=== PATIENT | male | born 1990 | race Caucasian/White ===

== ENCOUNTER 2020-02-03 20:16 | Emergency (ER) | payer OTHER, SELFPAY ==
--- NOTE | 2020-02-03 20:39 | HMH.EDUTC ---
[facility] [place] Impression: Viral syndrome Disposition: Home, Self-Care Condition on Discharge: Good Instructions: DI for Viral Syndrome Additional Instructions: Drink plenty of fluids. Take tylenol or ibuprofen for pain or fever. Take the medications as directed. Follow up with your regular doctor. GO TO THE ER FOR ANY WORSENING SYMPTOMS FOLLOW THE DIRECTIONS ON THE COVID-19 HAND OUT THAT WE GAVE YOU REGARDING SELF-ISOLATION UNTIL YOU KNOW YOUR COVID-19 RESULTS Prescriptions: Ondansetron [Zofran 4mg ODT] 4 mg PO Q8HP PRN #20 tab.rapdis PRN Reason: Nausea [id number] Azithromycin [Z-Maninder 250mg Tab*] 250 mg PO UD DOSE PK #6 tab Transmission Status: Received by [id number] Referrals: PCP,No [Primary Care Provider] - Forms: Work/School Release Time of Disposition: 20:53 Medical Decision Making - Medical Records Medical records reviewed: No: I reviewed the patient's medical records. - Dexter Inquiry Pt receiving controlled substance: No Vital Signs: 02/03/20 20:48 02/03/20 20:55 Temperature 98.6 F 98.6 F Temperature Source Oral Pulse Rate 88 Pulse Rate [Right Brachial] 88 Respiratory Rate 14 14 Blood Pressure 146/90 H Blood Pressure [Right Arm] 146/90 H Blood Pressure Mean [Right Arm] 108 Blood Pressure Source [Right Arm] Automatic Cuff Blood Pressure Position [Right Arm] Sitting 02 Sat by Pulse Oximetry 96 Oxygen Delivery Method Room Air - Lab Data Lab results reviewed: Yes: I reviewed the patient's lab results. Orders (Tests/Meds): ORDERS Category Date Time Status Coronavirus 19 Swab (OUTPT) Routine Lab 02/03/20 20:37 [place] [facility] [place] - General Stated complaint: Chest congestion, cough Time Seen by Provider: 02/03/20 20:39 - History of Present Illness Provider Complaint: He c/o 3 days of body aches, chills, diarrhea, nausea and generally feeling very bad. He denies any exposure to COVID-19, but he works around a lot of people. - Related Data Previous Rx's Medication Instructions Recorded albuterol sulfate 90 mcg/actuation 2 puff INHALATION Q6H PRN 7 Days 07/23/18 aerosol inhaler #6.7 g benzonatate 200 mg capsule 200 mg PO TID 7 Days #21 cap 07/23/18 prednisone 20 mg tablet 20 mg PO BID 5 Days #10 tab 07/23/18 Amoxicillin [Amoxicillin 500mg Tab] 500 mg PO TID 10 Days #30 tab 03/19/19 Ibuprofen [Ibuprofen 800mg 800 mg PO TIDP PRN #30 tab 03/19/19 Tablet] Brompheniramine/Pseudoephed/Dm 5 ml PO Q6HP PRN #240 syrup 08/29/19 [Bromfed Dm Cough Syrup] Azithromycin [Z-Maninder 250mg Tab*] 250 mg PO UD DOSE PK #6 tab 02/03/20 Ondansetron [Zofran 4mg ODT] 4 mg PO Q8HP PRN #20 tab.rapdis 02/03/20 Allergies Allergy/AdvReac Type Severity Reaction Status Date / Time No Known Allergies Allergy Verified 07/23/18 18:44 [facility] History - Hepatitis A Screen Attestation statement:: This patient has been screened for Hepatitis A risk factors. I have reviewed the patient's past medical history: Yes Medical History: Denies:: Cancer, Diabetes Mellitus Type 1, Diabetes Mellitus Type 2, Hypertension, MRSA Other Surgeries: Yes: No Previous Surgery Amputation: No Fractures: No - Social History Smoking Status: Current every day smoker Tobacco Type: cigarettes # Packs/Day (cigarettes): 1 Alcohol Intake: never Substance Use Type: marijuana Occupational Status: employed Housing: house Household Members: family Family Hx:: No significant family history ROS Obtained: Yes All systems reviewed & no additional complaints - Constitutional Constitutional: Reports chills, Reports fever(s), Reports poor appetite, Reports malaise - Eyes Eyes: Denies eye discharge - ENT Ears, Nose, Mouth, and Throat: Reports as per HPI - Respiratory Respiratory: Yes chest congestion, Yes cough Physical Exam - General General appearance: alert, in no apparent distress - Head Head exam:
[2020-02-03 20:48] VITALS: BP 146/90; PULSE 88; RESP 14; TEMP 37; O2SAT 96; BMI 29.8
[2020-02-03 20:55] VITALS: BP 146/90; PULSE 88; RESP 14; TEMP 37; O2SAT 96
== END 2020-02-03 20:58 | disposition home or self-care (01) ==
PROVIDERS: Emergency Provider Nurse Practitioner Family
DX: B34.9 Viral infection, unspecified (principal); Z20.828 Contact with and (suspected) exposure to other viral communicable diseases; F17.210 Nicotine dependence, cigarettes, uncomplicated
CPT/HCPCS: 99201; U0003

== ENCOUNTER 2020-09-19 13:06 | Emergency (ER) | payer OTHER, SELFPAY ==
[2020-09-19 14:05] VITALS: BP 138/74; PULSE 78; RESP 16; TEMP 37.3; O2SAT 98; BMI 32.5
--- NOTE | 2020-09-19 14:14 | HMH.EDUTC ---
[place] Disposition Clinical Impression: STD exposure Disposition: Home, Self-Care Condition on Discharge: Good Instructions: Chlamydia: The Silent STD Additional Instructions: Drink plenty of fluids. Take the medication as directed. Do not have unprotected sex for 1 week after taking the antibiotics. Make sure that you and your partner have both been treated or you will get reinfected. Follow up with your regular doctor. GO TO THE ER FOR ANY WORSENING SYMPTOMS Prescriptions: Azithromycin 1,000 mg PO ONCE #2 tab Transmission Status: Received by [id number] Referrals: PCP,No [Primary Care Provider] - Time of Disposition: 14:15 Medical Decision Making - Medical Records Medical records reviewed: No: I reviewed the patient's medical records. - Dexter Inquiry Pt receiving controlled substance: No Vital Signs: 09/19/20 14:05 09/19/20 14:29 Temperature 99.1 F 99 F Temperature Source Oral Pulse Rate 73 Pulse Rate [Right] 78 Respiratory Rate 16 19 Blood Pressure 133/81 Blood Pressure [Right Arm] 138/74 Blood Pressure Mean [Right Arm] 95 Blood Pressure Source [Right Arm] Automatic Cuff Blood Pressure Position [Right Arm] Sitting 02 Sat by Pulse Oximetry 98 [place] HPI - General Stated complaint: Tested for STI Time Seen by Provider: 09/19/20 14:14 Mode of Arrival: Ambulatory Source of Information: Patient Limitations: No Limitations Description of Symptoms (Recalled from Triage Doc. by RN): partner is + for chlamydia. pt wants to be tested for it and other STI's. HEENT Symptoms (Recalled from RN notes): No Resp Symptoms (Recalled from RN notes): No Skin Symptoms (Recalled from RN notes): No MS Symptoms (Recalled from RN notes): No Functional Status (Recalled from RN notes): na - History of Present Illness Provider Complaint: He is here to be tested for chlamydia. He states that his significant other told him that she tested positive for this. He has had unprotected sex with her. He denies any symptoms or complaints. - Related Data Previous Rx's Medication Instructions Recorded albuterol sulfate 90 mcg/actuation 2 puff INHALATION Q6H PRN 7 Days 07/23/18 aerosol inhaler #6.7 g benzonatate 200 mg capsule 200 mg PO TID 7 Days #21 cap 07/23/18 prednisone 20 mg tablet 20 mg PO BID 5 Days #10 tab 07/23/18 Amoxicillin [Amoxicillin 500mg Tab] 500 mg PO TID 10 Days #30 tab 03/19/19 Ibuprofen [Ibuprofen 800mg 800 mg PO TIDP PRN #30 tab 03/19/19 Tablet] Brompheniramine/Pseudoephed/Dm 5 ml PO Q6HP PRN #240 syrup 08/29/19 [Bromfed Dm Cough Syrup] Azithromycin [Z-Maninder 250mg Tab*] 250 mg PO UD DOSE PK #6 tab 02/03/20 Ondansetron [Zofran 4mg ODT] 4 mg PO Q8HP PRN #20 tab.rapdis 02/03/20 Azithromycin 1,000 mg PO ONCE #2 tab 09/19/20 Allergies Allergy/AdvReac Type Severity Reaction Status Date / Time No Known Allergies Allergy Verified 09/19/20 14:11 - Worker's Comp Is this a Worker's Comp case?: No [facility] History - Hepatitis A Screen Drug use history?: No High risk sexual behaviors?: No History of sexually transmitted infection?: No Currently employed?: No Childcare worker?: No Do you have indoor plumbing?: Yes Do you have electricity?: Yes Attestation statement:: This patient has been screened for Hepatitis A risk factors. I have reviewed the patient's past medical history: Yes Medical History: Denies:: Cancer, Diabetes Mellitus Type 1, Diabetes Mellitus Type 2, Hypertension, MRSA Other Surgeries: Yes: No Previous Surgery Amputation: No Fractures: No - Social History Smoking Status: Current every day smoker Tobacco Type: cigarettes # Packs/Day (cigarettes): 1 Alcohol Intake: never Substance Use Type: marijuana Occupational Status: other Housing: house Household Members: family Family Hx:: No significant family history ROS Obtained: Yes All systems reviewed & no additional complaints - Constitutional Constitutional: Denies chills, Denies d
[2020-09-19 14:29] VITALS: BP 133/81; PULSE 73; RESP 19; TEMP 37.2
[2020-09-23 12:23] LABS: Neisseria gonorrhoeae, NAA Negative (Negative)
== END 2020-09-19 14:29 | disposition home or self-care (01) ==
PROVIDERS: Emergency Provider Nurse Practitioner Family
DX: Z20.2 Contact with and (suspected) exposure to infections with a predominantly sexual mode of transmission (principal); F17.210 Nicotine dependence, cigarettes, uncomplicated
CPT/HCPCS: 87491; 87591; 99202; G0463

== ENCOUNTER → 2021-06-30 15:23 | Outpatient (CLI) | payer OTHER, SELFPAY | PROVIDERS: Visit Provider Nurse Practitioner | DX: U07.1 COVID-19 (principal) | CPT/HCPCS: C9803; U0003; U0005 ==

== ENCOUNTER 2021-12-28 16:13 | Emergency (ER) | payer OTHER, SELFPAY ==
[2021-12-28 16:20] VITALS: BP 137/86; PULSE 78; RESP 18; TEMP 37; O2SAT 98; BMI 33.5
--- NOTE | 2021-12-28 16:20 | XR_ITS ---
PROCEDURE INFORMATION: Exam: XR Right Knee Exam date and time: 12/28/2021 4:29 PM Age: 31 years old Clinical indication: Injury or trauma; Other: Twisted in a sink hole; Sprain or strain; Patella or knee; Injury details: PT states that he twisted his right knee in a sink hole 2 days ago. ; Additional info: Fell while mowing and twisted knee TECHNIQUE: Imaging protocol: Radiologic exam of the Right knee. Views: 3 views. COMPARISON: No relevant prior studies available. FINDINGS: Bones/joints: Normal. Soft tissues: Mild soft tissue swelling superficial to the medial knee compartment. IMPRESSION: 1. No evidence of acute osseous injury. 2. Mild soft tissue swelling superficial to the medial knee compartment.
--- NOTE | 2021-12-28 16:38 | HMH.EDUTC ---
[facility] [place]: Knee strain Qualifiers: Encounter type: initial encounter Laterality: right Qualified Code(s): S86.911A - Strain of unspecified muscle(s) and tendon(s) at lower leg level, right leg, initial encounter Disposition: Home, Self-Care Condition on Discharge: Good Instructions: DI for Knee Sprain, How to Use an Elastic Bandage-Knee Sprain, How To Perform RICE (Rest, Ice, Compress, Elevate) Additional Instructions: *weight bearing as tolerated *RICE, Rest the extremity, Ice 15-20 minutes 3-4 times daily, Compress- wear the gadiel wrap as discussed as much as possible to help reduce swelling and pain, Elevate the extremity when at rest *Gadiel wrap is for support and help control swelling, use it except in the shower. Be sure that is not to tight but not to loose either *Elevate when resting *Ibuprofen 600-800mg every 6-8 hours as needed for pain an inflammation. If need something more can take Tylenol in between doses of Ibuprofen to help Immediately follow up with your family doctor for new or worsening of symptoms, or no noticeable improvement over the next 3-5 days Referrals: Mary Hernandez APRN [Primary Care Provider] - As needed Forms: Work/School Release Time of Disposition: 16:52 Medical Decision Making - Dexter Inquiry Pt receiving controlled substance: No Dexter was queried for this patient: No Vital Signs: 12/28/21 16:20 Temperature 98.6 F Temperature Source Oral Pulse Rate [Right Brachial] 78 Respiratory Rate 18 Blood Pressure [Right Arm] 137/86 Blood Pressure Mean [Right Arm] 103 Blood Pressure Source [Right Arm] Automatic Cuff Blood Pressure Position [Right Arm] Sitting 02 Sat by Pulse Oximetry 98 Oxygen Delivery Method Room Air Orders (Tests/Meds): ORDERS Category Date Time Status XR knee RT 3V Stat Exams 12/28/21 16:20 Ordered - Radiology Data #1 Image(s): Knee Image Reviewed: Yes I reviewed the patient's radiology image Preliminary Findings: No Fracture [place] [facility] [place] - General Stated complaint: AO07/12 r leg inj Time Seen by Provider: 12/28/21 16:38 Mode of Arrival: Ambulatory Source of Information: Patient Limitations: No Limitations Description of Symptoms (Recalled from Triage Doc. by RN): PATIENT STATES HE WAS MOWING 2 DAYS AGO AND STEPPED IN A SINK HOLE, INJURING RIGHT KNEE HEENT Symptoms (Recalled from RN notes): No Resp Symptoms (Recalled from RN notes): No Skin Symptoms (Recalled from RN notes): No MS Symptoms (Recalled from RN notes): Yes Functional Status (Recalled from RN notes): WNL - History of Present Illness Provider Complaint: Patient states that he was mowing grass a few days ago when he stepped in sink hole and hurt his right leg States that he has been having pain behind his knee that shoots into lower leg States that he does alot of heavy lifting at work and hasnt been able to do it - Related Data Allergies Allergy/AdvReac Type Severity Reaction Status Date / Time No Known Allergies Allergy Verified 04/10/21 15:48 - Worker's Comp Is this a Worker's Comp case?: No [facility] History - Hepatitis A Screen Attestation statement:: This patient has been screened for Hepatitis A risk factors. I have reviewed the patient's past medical history: Yes Medical History: Denies:: Cancer, Diabetes Mellitus Type 1, Diabetes Mellitus Type 2, Hypertension, MRSA Other Surgeries: Yes: No Previous Surgery Amputation: No Fractures: No - Social History Smoking Status: Current every day smoker Tobacco Type: cigarettes # Packs/Day (cigarettes): 1 Alcohol Intake: never Substance Use Type: marijuana Occupational Status: other Housing: house Household Members: family Family Hx:: No significant family history ROS Obtained: Yes All systems reviewed & no additional complaints, Yes Systems reviewed as appropriate & no additional complaints - Constitutional Constitutional: Reports system reviewed and no additional complaints, ex
[2021-12-28 16:50] VITALS: BP 137/86; PULSE 78; RESP 18; TEMP 37; O2SAT 98
== END 2021-12-28 16:54 | disposition home or self-care (01) ==
PROVIDERS: Emergency Provider Nurse Practitioner; PCP Nurse Practitioner Family
DX: S86.911A Strain of unspecified muscle(s) and tendon(s) at lower leg level, right leg, initial encounter (principal); X50.1XXA Overexertion from prolonged static or awkward postures, initial encounter
CPT/HCPCS: 73562; 99212; G0463

== ENCOUNTER 2022-06-11 17:10 | Emergency (ER) | payer OTHER, SELFPAY ==
--- NOTE | 2022-06-11 17:32 | EXP.UTC ---
Discharge Plan Disposition Patient Disposition: Home, Self-Care Condition: Good Prescriptions Prescriptions: New azithromycin [Zithromax] 250 mg tablet 250 mg PO UD DOSE PK Qty: 6 0RF Rx Instructions: Take two (2) tablets today, then one (1) tablet days #2 thru #5 [id number]-[id number]-HA [Bromfed DM] 2-30-10 mg/5 mL Syrup 5 ml PO Q6H PRN (Reason: Cough) Qty: 240 0RF methylprednisolone 4 mg Tablets,Dose Pack 4 mg PO DIRECTED Qty: 21 0RF ondansetron 4 mg Tablet,Disintegrating 4 mg PO Q8H PRN (Reason: Nausea) Qty: 12 0RF Referrals Follow up/Referrals: Provider,Referral, MD [Primary Care Provider] - See instructions Activity Restrictions/Add. Instructions Additional Instructions/Restrictions: Drink plenty of fluids. Take tylenol or ibuprofen for pain or fever. Take the medications as directed. Follow up with your regular doctor. GO TO THE ER FOR ANY WORSENING SYMPTOMS Clinical Impressions Clinical Impression: Viral syndrome, Bronchitis Stand Alone Forms Stand Alone Forms: Work/School Release Instructions Patient Instructions: DI for Acute Bronchitis, DI for Viral Syndrome Discharge ED Provider: Brando Willingham [facility] General Stated complaint: soa, vomiting, weakness, runny nose Time Seen by Provider: 06/11/22 18:36 History of Present Illness Provider Complaint: He states that for the past 1 day he has had fever, chills, cough, sore throat, n/v/d, and body aches. Related Data Previous Rx's Medication Instructions Recorded azithromycin 250 mg tablet 250 mg PO UD DOSE PK #6 tabs 06/11/22 (Zithromax) wzegulvgxmjjcrb-ujpjmritodojneo-AQ 5 ml PO Q6H PRN Cough #240 mL 06/11/22 2 mg-30 mg-10 mg/5 mL oral syrup (Bromfed DM) methylprednisolone 4 mg tablets in 4 mg PO DIRECTED #21 tabs 06/11/22 a dose pack ondansetron 4 mg disintegrating 4 mg PO Q8H PRN Nausea #12 tabs 06/11/22 tablet Allergies Allergy/AdvReac Type Severity Reaction Status Date / Time No Known Allergies Allergy Verified 06/11/22 18:48 [facility] Disclaimer: The information contained in this section may have been updated after the patient was seen, as this information can be updated by other users. Social History Smoking Status: Current every day smoker tobacco type: cigarettes packs per day: 1 second hand exposure: No alcohol intake: never substance use type: marijuana current occupational status: other Travel in the last 8 weeks: None household members: family housing: house ROS Obtained: Yes All systems reviewed & no additional complaints except as documented Constitutional Constitutional: Reports chills and Reports fever(s) Eyes Eyes: Denies eye discharge ENT Ears, Nose, Mouth, and Throat: Reports as per HPI Cardiovascular Cardiovascular: Denies chest pain Respiratory Respiratory: Denies chest congestion and Reports cough Gastrointestinal Gastrointestingal: Reports nausea; Denies abdominal pain, constipation, cramping, diarrhea or vomiting Musculoskeletal Musculoskeletal: Denies arthralgias Integumentary/Breasts Skin/Breast: Denies rash Neurologic Neurologic: Denies paresthesias Physical Exam General General appearance: alert and in no apparent distress Head Head exam: atraumatic, normocephalic and normal inspection Eye Eye exam: Present normal appearance, PERRL and EOMI ENT ENT exam: Present mucous membranes moist and normal external ear exam Expanded ENT Exam TM/Canal exam: Bilateral TM: erythema and bulging Nose exam: Absent sinus tenderness Mouth exam: Present normal external inspection; Absent drooling Teeth exam: Present normal inspection Throat exam: Present tonsillar erythema, tonsillomegaly and tonsillar exudate Neck Neck exam: Present normal inspection, full ROM and trachea midline; Absent tenderness, meningismus or lymphadenopathy Chest Chest inspection: Present normal inspect
[2022-06-11 18:46] VITALS: BP 138/96; PULSE 75; RESP 16; TEMP 36.9; O2SAT 97; BMI 32.5
[2022-06-11 18:47] LABS: UTC Influenza A Antigen Negative (Negative); UTC Influenza B Antigen Negative (Negative); UTC Strep Screen (Rapid) Negative (Negative)
[2022-06-11 19:26] VITALS: BP 138/96; PULSE 75; RESP 16; TEMP 36.9
[2022-06-11 19:28] LABS: Adenovirus,PCR Not Detected (NotDetected); Bordetella Pertussis Not Detected (NotDetected); Chlamydophila Pneumoniae, PCR Not Detected (NotDetected); Coronavirus 19, PCR Not Detected (NotDetected); Coronavirus 229E Not Detected (NotDetected); Coronavirus NL63 Not Detected (NotDetected); Coronavirus OC43 Not Detected (NotDetected); Coronovirus HKU1,PCR Not Detected (NotDetected); Human Metapneumovirus Not Detected (NotDetected); Influenza A, PCR Not Detected (NotDetected); Influenza AH1, 2009 Not Detected (NotDetected); Influenza AH1, PCR Not Detected (NotDetected); Influenza AH3,PCR Not Detected (NotDetected); Influenza B, PCR Not Detected (NotDetected); Mycoplasma Pneumoniae, PCR Not Detected (NotDetected); Parainfluenza 1, PCR Not Detected (NotDetected); Parainfluenza 2, PCR Not Detected (NotDetected); Parainfluenza 3, PCR Not Detected (NotDetected); Parainfluenza 4, PCR Not Detected (NotDetected); Respiratory Syncytial Virus Not Detected (NotDetected)
[2022-06-12 10:33] LABS: Rhinovirus/Enterovirus Detected (NotDetected)
== END 2022-06-11 19:27 | disposition home or self-care (01) ==
PROVIDERS: Emergency Provider Nurse Practitioner Family
DX: J40 Bronchitis, not specified as acute or chronic (principal); B34.9 Viral infection, unspecified
CPT/HCPCS: 87581; 87632; 87798; 87804; 87880; 99212; C9803; G0463; U0003; U0005

== ENCOUNTER 2022-11-09 15:31 | Emergency (ER) | payer OTHER, SELFPAY ==
[2022-11-09 15:32] VITALS: BP 141/101; PULSE 63; RESP 17; TEMP 36.8; O2SAT 97; BMI 32.5
--- NOTE | 2022-11-09 15:38 | HMH.EDGENADL ---
Discharge Plan Disposition Patient Disposition: Home, Self-Care Prescriptions Prescriptions: No Action No Known Home Medications Activity Restrictions/Add. Instructions Additional Instructions/Restrictions: Follow-up with your primary care doctor in the emergency department as needed. Please stay well-hydrated as discussed. Clinical Impressions Clinical Impression: Arm paresthesia, left, Acute dehydration, Diarrhea Discharge ED Provider: Donna Thurston General Adult HPI General Chief complaint: Dizziness Stated complaint: left arm nunbness SOB Time Seen by Provider: 11/09/22 15:39 History of Present Illness HPI narrative: Patient is a 32-year-old male presenting with multiple complaints. 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 He has had a little bit of chest discomfort and his mother told him this is how your father . States that his father had an DC at the age of 52. Patient states his left upper extremity paresthesias have since resolved he no longer has any chest pain. His only complaint currently is significant fatigue. His mother also states that they have a family history of diabetes and he is concerned about that. He denies any history of polyuria polydipsia polyphagia or any other symptoms at this point. He does state that he has had diarrhea over the last week which was pretty significant but is improving. Related Data Home Medications Medication Instructions Recorded Confirmed No Known Home Medications 11/09/22 11/09/22 Allergies Allergy/AdvReac Type Severity Reaction Status Date / Time No Known Allergies Allergy Verified 06/11/22 18:[address] [facility] Disclaimer: The information contained in this section may have been updated after the patient was seen, as this information can be updated by other users. Social History Smoking Status: Current every day smoker tobacco type: cigarettes packs per day: 1 second hand exposure: No alcohol intake: never substance use type: marijuana current occupational status: other Travel in the last 8 weeks: None household members: family housing: house ROS Obtained: Yes All systems reviewed & no additional complaints except as documented Physical Exam General General appearance: alert Respiratory Respiratory exam: Present normal lung sounds bilaterally Cardiovascular Cardiovascular exam: Present regular rate and normal rhythm; Absent tachycardia Abdominal Exam Abdominal exam: Present soft; Absent distention or tenderness Neurological Exam Neurological exam: Present alert, CN II-XII intact, normal gait and other (Left upper extremity motor and sensory exam normal); Absent oriented X3 or motor sensory deficit Medical Decision Making Dexter Inquiry Pt receiving controlled substance: No Vital Signs: 11/09/22 15:32 Temperature 98.2 F Temperature Source Oral Pulse Rate [Left] 63 Respiratory Rate 17 Blood Pressure [Right Arm] 141/101 H Blood Pressure Mean [Right Arm] 114 Blood Pressure Source [Right Arm] Automatic Cuff Blood Pressure Position [Right Arm] Sitting 02 Sat by Pulse Oximetry 97 Oxygen Delivery Method Room Air Lab Data Lab results reviewed: Yes I reviewed the patient's lab results. Lab Results 11/09/22 16:02: WBC 7.2, RBC 4.90, Hgb 14.4, Hct 43.8, MCV 89.4, MCH 29.5, MCHC 32.9, RDW 12.4, Plt Count 268, MPV 8.8, Neut % (Auto) 56.8, Lymph % (Auto) 35.3, [place] % (Auto) 5.2, Eos % (Auto) 1.9, Baso % (Auto) 0.8, Neut # (Auto) 4.1, Lymph # (Auto) 2.5, [place] # (Auto) 0.4, Eos # (Auto) 0.1, Baso # (Auto) 0.1 11/09/22 16:02: Sodium 140, Potassium 4.0, Chloride 108 H, Carbon Dioxide 28, Anion Gap 8.0, BUN 8 L, Creatinine 0.80, Estimated Creat Clear 206, Estimated GFR 113, Est GFR ( Amer) 136, Glucose 113 H, Calcium 8.7, To
--- NOTE | 2022-11-09 15:56 | XR_ITS ---
FINAL REPORT CLINICAL HISTORY: dyspnea FINDINGS: SINGLE VIEW CHEST The heart size is normal. The mediastinum is within normal limits. Mild bilateral bronchial wall thickening is identified consistent with bronchitis. There is no evidence of pneumothorax. The bony thorax is intact. IMPRESSION: Mild bilateral bronchial wall thickening consistent with bronchitis. Reviewed, Interpreted and Dictated by Wilfredo Almeida III, MD Transcribed by Nohelia Kelly Authenticated and [facility]
--- NOTE | 2022-11-09 16:02 | ECG_ITS ---
APPROVED REPORT Exam: Resting ECG HR:54 bpm ECG Measurements Heart Rate 54 AXES AZ 195 P 60 QRSd 89 QRS 69 QT 391 T 50 QTc 378 Conclusion SINUS BRADYCARDIA WITH SINUS ARRHYTHMIA BORDERLINE ECG UNCONFIRMED REPORT Electronically signed by : Cristi Holloway MD 11/10/2022 07:13:12
--- NOTE | 2022-11-09 16:04 | PC.NURSE ---
PT RESTING IN BED NOTHING NEEDED AT THIS TIME
[2022-11-09 16:15] LABS: Basophils # 0.1 K/mm3 (0-0.2); Basophils % 0.8 % (0.1-2.0); Eosinophils # 0.1 K/mm3 (0.0-0.4); Eosinophils % 1.9 % (0.1-12.0); Hematocrit 43.8 % (42.0-52.0); Hemoglobin 14.4 g/dL (14.1-18.0); Lymphocytes # 2.5 K/mm3 (0.7-4.5); Lymphocytes % 35.3 % (10-50); Mean Corpuscular HGB Conc 32.9 g/dL (31.8-35.4); Mean Corpuscular Hemoglobin 29.5 pg (27.0-31.2); Mean Corpuscular Volume 89.4 fl (80-94); Mean Platelet Volume 8.8 fl (7.4-10.4); Monocytes # 0.4 K/mm3 (0.1-1.0); Monocytes % 5.2 % (1.7-9.3); Neutrophils # 4.1 K/mm3 (1.8-7.8); Neutrophils % 56.8 % (37.0-80.0); Platelet Count 268 K/mm3 (142-424); Red Cell Distribution Width 12.4 % (11.5-17.5); White Blood Count 7.2 K/mm3 (4.8-10.8)
[2022-11-09 16:18] LABS: Chloride 108 mmol/L (98-107); Sodium 140 mmol/L (136-145)
[2022-11-09 16:21] LABS: Alanine Aminotransferase 37 U/L (12-78); Albumin Level 3.9 g/dl (3.5-5.0); Albumin/Globulin Ratio 1.5 (1.1-1.8); Alkaline Phosphatase 61 U/L (38-126); Aspartate Amino Transferase 30 U/L (17-59); Bilirubin,Total 0.6 mg/dl (0.2-1.3); Blood Urea Nitrogen 8 mg/dl (9-20); Carbon Dioxide 28 mmol/L (22.0-30.0); Creatinine Clearance Estimated 206 mL/min (50-200); Estimated Glomerular Filt Rate 113 ml/min (>60); GFR (African American) 136 ML/MIN (>60); Globulin 2.6 g/dL (1.3-3.2); Total Protein,Serum 6.5 g/dl (6.3-8.2)
[2022-11-09 16:22] LABS: Calcium 8.7 mg/dl (8.4-10.2); Glucose 113 mg/dl (74-100)
[2022-11-09 16:40] LABS: Troponin I < 0.01 ng/ml (0.00-0.034)
--- NOTE | 2022-11-09 16:43 | PC.NURSE ---
CHECKED ON PT GAVE A WATER NO COMPLAINTS AT THIS TIME
[2022-11-09 17:31] VITALS: BP 139/79; PULSE 67; RESP 17; TEMP 36.8; O2SAT 97
== END 2022-11-09 17:31 | disposition home or self-care (01) ==
PROVIDERS: Emergency Provider Student in an Organized Health Care Education/Training Program
DX: E86.0 Dehydration (principal); R19.7 Diarrhea, unspecified; R06.02 Shortness of breath; R20.2 Paresthesia of skin; F17.210 Nicotine dependence, cigarettes, uncomplicated
CPT/HCPCS: 71045; 80053; 84484; 85025; 93005; 96360; 99285

== ENCOUNTER 2023-04-02 18:00 | Emergency (ER) | payer BC, OTHER, SELFPAY ==
[2023-04-02 18:01] VITALS: BP 135/95; PULSE 80; RESP 18; TEMP 36.7; O2SAT 97; BMI 34.0
--- NOTE | 2023-04-02 18:11 | EXP.UTC ---
Discharge Plan Disposition Patient Disposition: Home, Self-Care Condition: Good Prescriptions Prescriptions: New fwvpqjjmahxriet-ogfpuhloi-AQ [Bromfed DM] 2-30-10 mg/5 mL Syrup 5 ml PO Q6H PRN (Reason: Cough) Qty: 240 0RF amoxicillin-pot clavulanate 875-125 mg Tablet 1 tab PO Q12H Qty: 20 0RF methylprednisolone 4 mg Tablets,Dose Pack 4 mg PO DIRECTED Qty: 21 0RF ondansetron 4 mg Tablet,Disintegrating 4 mg PO Q8H PRN (Reason: Nausea) Qty: 12 0RF Referrals Follow up/Referrals: Provider,Referral, MD [Primary Care Provider] - See instructions Activity Restrictions/Add. Instructions Additional Instructions/Restrictions: Drink plenty of fluids. Take tylenol or ibuprofen for pain or fever. Take the medications as directed. Follow up with your regular doctor. GO TO THE ER FOR ANY WORSENING SYMPTOMS Clinical Impressions Clinical Impression: Pharyngitis, Bronchitis Stand Alone Forms Stand Alone Forms: Work/School Release Instructions Patient Instructions: Sore Throat, DI for Pharyngitis/Tonsillopharyngitis -- Child, DI for Viral Syndrome Discharge ED Provider: Brando Willingham [facility] General Stated complaint: SOA, rebekah, vomiting Time Seen by Provider: 04/02/23 18:11 History of Present Illness Provider Complaint: He states that he has had sore throat, chills, cough and n/v since yesterday. Related Data Previous Rx's Medication Instructions Recorded amoxicillin 875 mg-potassium 1 tab PO Q12H #20 tabs 04/02/23 clavulanate 125 mg tablet yjqccijwzdvhmio-jvguhfnpoulgolt-LF 5 ml PO Q6H PRN Cough #240 mL 04/02/23 2 mg-30 mg-10 mg/5 mL oral syrup (Bromfed DM) methylprednisolone 4 mg tablets in 4 mg PO DIRECTED #21 tabs 04/02/23 a dose pack ondansetron 4 mg disintegrating 4 mg PO Q8H PRN Nausea #12 tabs 04/02/23 tablet Allergies Allergy/AdvReac Type Severity Reaction Status Date / Time No Known Allergies Allergy Verified 04/02/23 18:19 [facility] Disclaimer: The information contained in this section may have been updated after the patient was seen, as this information can be updated by other users. Social History Smoking Status: Current every day smoker tobacco type: cigarettes packs per day: 1 second hand exposure: No alcohol intake: never substance use type: marijuana current occupational status: other Travel in the last 8 weeks: None household members: family housing: house ROS Obtained: Yes All systems reviewed & no additional complaints except as documented Constitutional Constitutional: Reports chills and Reports fever(s) Eyes Eyes: Denies eye discharge ENT Ears, Nose, Mouth, and Throat: Reports as per HPI Cardiovascular Cardiovascular: Denies chest pain Respiratory Respiratory: Denies chest congestion and Reports cough Gastrointestinal Gastrointestingal: Reports nausea; Denies abdominal pain, constipation, cramping, diarrhea or vomiting Musculoskeletal Musculoskeletal: Denies arthralgias Integumentary/Breasts Skin/Breast: Denies rash Neurologic Neurologic: Denies paresthesias Physical Exam General General appearance: alert and in no apparent distress Head Head exam: atraumatic, normocephalic and normal inspection Eye Eye exam: Present normal appearance, PERRL and EOMI ENT ENT exam: Present mucous membranes moist and normal external ear exam Expanded ENT Exam TM/Canal exam: Bilateral TM: erythema and bulging Nose exam: Absent sinus tenderness Mouth exam: Present normal external inspection; Absent drooling Teeth exam: Present normal inspection Throat exam: Present tonsillar erythema, tonsillomegaly and tonsillar exudate Neck Neck exam: Present normal inspection, full ROM and trachea midline; Absent tenderness, meningismus or lymphadenopathy Chest Chest inspection: Present normal inspection and symmetric chest wall rise; Absent tenderness Respiratory Respiratory exam: P
[2023-04-02 18:25] LABS: UTC Strep Screen (Rapid) Negative (Negative)
[2023-04-02 18:26] LABS: UTC Influenza A Antigen Negative (Negative); UTC Influenza B Antigen Negative (Negative)
[2023-04-02 18:36] VITALS: BP 135/95; PULSE 80; RESP 18; TEMP 36.7; O2SAT 97
== END 2023-04-02 18:36 | disposition home or self-care (01) ==
PROVIDERS: Emergency Provider Nurse Practitioner Family
DX: J20.9 Acute bronchitis, unspecified (principal); J02.9 Acute pharyngitis, unspecified; F17.210 Nicotine dependence, cigarettes, uncomplicated
CPT/HCPCS: 87635; 87804; 87880; 99212; 99214; G0463

== ENCOUNTER 2024-01-31 10:05 | Emergency (ER) | payer BC, OTHER, SELFPAY ==
[2024-01-31 10:17] VITALS: BP 133/102; PULSE 105; RESP 16; TEMP 37.1; O2SAT 94; BMI 33.7
[2024-01-31 10:22] LABS: UTC Strep Screen (Rapid) Positive (Negative)
--- NOTE | 2024-01-31 10:22 | ED_ITS ---
Discharge Plan Disposition Patient Disposition: Home, Self-Care Condition: Good Prescriptions Prescriptions: New azithromycin [Zithromax Z-Maninder] 250 mg tablet See Rx Instructions .ROUTE .COMPLEX 5 Days Qty: 6 0RF Rx Instructions: For 250 mg dose pack: take 500 mg today (day 1), then 250 mg for 4 days (days 2-5) methylprednisolone [Medrol (Maninder)] 4 mg tablets,dose pack See Rx Instructions .Route .COMPLEX 6 Days Qty: 21 0RF Rx Instructions: taper pack; ondansetron 4 mg tablet,disintegrating 4 mg PO Q8H PRN (Reason: nausea and vomiting) Qty: 10 0RF No Action wqyijqwrgfsohtg-bpdwwsumg-EJ [Bromfed DM] 2-30-10 mg/5 mL Syrup 5 ml PO Q6H PRN (Reason: Cough) Qty: 240 0RF amoxicillin-pot clavulanate 875-125 mg Tablet 1 tab PO Q12H Qty: 20 0RF methylprednisolone 4 mg Tablets,Dose Pack 4 mg PO DIRECTED Qty: 21 0RF ondansetron 4 mg Tablet,Disintegrating 4 mg PO Q8H PRN (Reason: Nausea) Qty: 12 0RF Referrals Follow up/Referrals: Irwin Owen [Primary Care Provider] - See instructions Activity Restrictions/Add. Instructions Additional Instructions/Restrictions: *Monitor Temp, Over the counter Motrin or Tylenol as directed/as needed Tylenol every 4 hours and Motrin every 6 hours (as long as your family doctor has told you that you can take it) for fever or pain. and straight to ER if unable to lower temp less than 101.0 after medication given *Warm salt water gargles may help to soothe the throat *Throat Lozenges? *Warm fluids like tea with honey may help to soothe the throat? *Sleep elevated *Humidifier/Vaporizer *If you did not take Penicillin shot or was unable to, start taking antibiotic immediately and make sure that you take it for the FULL length of time although you should start to feel better in 24-48 hours *change toothbrush and toothpaste 24-48 hours after starting to take antibiotics so you do not reinfect yourself Monitor Temp. Tylenol and/or Ibuprofen as needed. ER if fever is no less than 101 despite alternating Tylenol and Ibuprofen * Encourage fluids, water, Gatorade, powerade, pedialyte if /toddler/or child *Cold fluids, popsicles and ice cream may feel good on his throat Follow up IMMEDIATELY for new or worsening symptoms or no Noticeable improvement over the next 48-72 hours. 911 for difficulty breathing or swallowing Clinical Impressions Clinical Impression: Strep throat Stand Alone Forms Stand Alone Forms: Work/School Release Instructions Patient Instructions: Strep Throat, DI for Strep Throat Print Language Print Language: Cypriot Discharge ED Provider: Yeny Spears [facility] [place] [facility] HPI General Stated complaint: sore throat, SOA Mode of Arrival: Ambulatory Source of Information: Patient Limitations: No Limitations Time Seen by Provider: 01/31/24 10:23 Description of Symptoms (Recalled from Triage Doc. by RN): Patient reports sore throat and pain with swallowing. HEENT Symptoms (Recalled from RN notes): Yes Resp Symptoms (Recalled from RN notes): No Skin Symptoms (Recalled from RN notes): No MS Symptoms (Recalled from RN notes): No Functional Status (Recalled from RN notes): wnl History of Present Illness Provider Complaint: Patient states that for the last 3-4 days he has been having sore throat, pain with swallowing States not sure if he has had a fever or not but has been feeling cold, chills, and sweating at times States that he tried to work today but had to leave work and come here because he was feeling so bad and has also had some vomiting Related Data Previous Rx's ?Medication ?Instructions ?Recorded amoxicillin 875 mg-potassium 1 tab PO Q12H #20 tabs 04/02/23 clavulanate 125 mg tablet edoriwzffmusqtd-csxhkdpeemrhkjr-SH 5 ml PO Q6H PRN Cough #240 mL 04/02/23 2 mg-30 mg-10 mg/5 mL oral syrup (Bromfed DM) methylprednisolone 4 mg tablets in 4 mg PO DIRECTED #21 tabs 04/02/23 a dose pack ondansetron 4 mg disintegrating 4 mg PO Q8H PRN Nausea #12 tabs 04/02/23 tablet azithromycin 250 mg tablet See Rx Instructions PO .COMPLEX 5 01/31/24 (Zithromax Z-Maninder) days #6 tabs methylprednisolone 4 mg tablets in See Rx Instructions .Route 01/31/24 a dose pack (Medrol (Maninder)) .COMPLEX 6 days #21 tabs ondansetron 4 mg disintegrating 4 mg PO Q8H PRN nausea and 01/31/24 tablet vomiting #10 tabs Allergies Allergy/AdvReac Type Severity Reaction Status Date / Time No Known Allergies Allergy Verified 04/02/23 18:19 Worker's Comp Is this a Worker's Comp case?: [facility] Dis[facility]: The information contained in this section may have been updated after the patient was seen, as this information can be updated by other users. Social History Smoking Status: Current every day smoker tobacco type: cigarettes packs per day: 1 second hand exposure: No alcohol intake: never substance use type: marijuana current occupational status: other Travel in the last 8 weeks: None household members: family housing: house ROS Obtained: Yes All systems reviewed & no additional complaints except as documented and Yes Systems reviewed as appropriate & no additional complaints except as documented Constitutional Constitutional: Reports system reviewed and no additional complaints, except as documented, Reports as per HPI, Reports body ache, Reports chills and Reports headache(s) ENT Ears, Nose, Mouth, and Throat: Reports system reviewed and no additional complaints, except as documented, Reports as per HPI, Reports headache(s) and Reports sore throat Cardiovascular Cardiovascular: Reports system reviewed and no additional complaints, except as documented and Reports as per HPI Respiratory Respiratory: Reports system reviewed and no additional complaints, except as documented and Reports as per HPI Gastrointestinal Gastrointestingal: Reports system reviewed and no additional complaints, except as documented, as per HPI, nausea and vomiting Neurologic Neurologic: Reports headache(s) Physical Exam General General appearance: alert and in no apparent distress ENT ENT exam: Present mucous membranes moist Expanded ENT Exam Throat exam: Present tonsillar erythema, tonsillomegaly and tonsillar exudate Respiratory Respiratory exam: Present normal lung sounds bilaterally; Absent respiratory distress or wheezes Cardiovascular Cardiovascular exam: Present regular rate, normal rhythm and tachycardia Abdominal Exam Abdominal exam: Present soft and normal bowel sounds; Absent distention or tenderness Neurological Exam Neurological exam: Present alert, oriented X3 and normal gait Medical Decision Making Dexter Inquiry Pt receiving controlled substance: No Dexter was queried for this patient: No Vital Signs: 01/31/24 10:17 Temperature 98.8 F Temperature Source Oral Pulse Rate [Radial] 105 H Respiratory Rate 16 Blood Pressure [Right Arm] 133/102 H Blood Pressure Mean [Right Arm] 112 Blood Pressure Source [Right Arm] Automatic Cuff Blood Pressure Position [Right Arm] Sitting 02 Sat by Pulse Oximetry 94 L Oxygen Delivery Method Room Air Lab Data Lab results reviewed: Yes I reviewed the patient's lab results. Lab Results 01/31/24 10:21: Strep Scn [facility] Positive A
[2024-01-31] MEDS: METHYLPREDNISOLONE SOD SUCC 125MG VIAL 125 MG IM (10:28)
[2024-01-31] MEDS: PENICILLIN G BENZATHINE 1,200,000 UNITS/2ML SYRINGE 1200000 UNIT IM (10:28)
[2024-01-31 10:52] VITALS: BP 133/90; PULSE 100; RESP 16; TEMP 37.1; O2SAT 99
== END 2024-01-31 10:53 | disposition home or self-care (01) ==
PROVIDERS: Emergency Provider Nurse Practitioner; PCP Pediatrics
DX: J02.0 Streptococcal pharyngitis (principal); R50.9 Fever, unspecified; R11.10 Vomiting, unspecified; R07.0 Pain in throat
CPT/HCPCS: 87880; 96372; 99212; 99214; G0463; J0561; J2919

== ENCOUNTER 2024-04-27 09:26 | Emergency (ER) | payer OTHER, SELFPAY ==
[2024-04-27 09:36] VITALS: BP 142/89; PULSE 82; RESP 16; TEMP 37.1; O2SAT 99; BMI 32.3
--- NOTE | 2024-04-27 09:44 | ED_ITS ---
Discharge Plan Disposition Patient Disposition: Home, Self-Care Condition: Good Prescriptions Prescriptions: New dicyclomine 10 mg capsule 10 mg PO TID PRN (Reason: abdominal pain/cramping) Qty: 12 0RF ondansetron 4 mg tablet,disintegrating 4 mg PO Q8H PRN (Reason: nausea and vomiting) Qty: 15 0RF No Action azithromycin [Zithromax Z-Maninder] 250 mg tablet See Rx Instructions .ROUTE .COMPLEX 5 Days Qty: 6 0RF Rx Instructions: For 250 mg dose pack: take 500 mg today (day 1), then 250 mg for 4 days (days 2-5) methylprednisolone [Medrol (Maninder)] 4 mg tablets,dose pack See Rx Instructions .Route .COMPLEX 6 Days Qty: 21 0RF Rx Instructions: taper pack; ondansetron 4 mg tablet,disintegrating 4 mg PO Q8H PRN (Reason: nausea and vomiting) Qty: 10 0RF vwmiqkpzmmbstkx-zthppvrso-EO [Bromfed DM] 2-30-10 mg/5 mL Syrup 5 ml PO Q6H PRN (Reason: Cough) Qty: 240 0RF amoxicillin-pot clavulanate 875-125 mg Tablet 1 tab PO Q12H Qty: 20 0RF methylprednisolone 4 mg Tablets,Dose Pack 4 mg PO DIRECTED Qty: 21 0RF ondansetron 4 mg Tablet,Disintegrating 4 mg PO Q8H PRN (Reason: Nausea) Qty: 12 0RF Referrals Follow up/Referrals: Provider,Referral, MD [Primary Care Provider] - See instructions Activity Restrictions/Add. Instructions Additional Instructions/Restrictions: Make sure to drink plenty of fluids Drink extra fluids with and between meals. If you have difficulty drinking, try very small amounts of water or suck on ice chips. ? Avoid fruit juices, as these do not replace minerals and can actually increase diarrhea. ? Children and adults can use sports drinks to replenish electrolytes. Younger children and infants should use products formulated for children, like oral rehydration solutions. ? Eat food in small amounts and let your stomach recover. ? Get lots of rest. You may feel tired or weak. ? No greasy or fried foods for the next 24-48 hours BRAT diet Bananas Rice Apples and [place] ? Make sure to drink plenty of liquids ? Return if needed ? Straight to ER if any life threatening symptoms ? Zofran as prescribed ? You was given an outpatient order for diarrhea panel, please collect specimen and bring back to outpatient lab then call back to the [facility] or follow up with family doctor for results ? Follow up with family doctor in the next 48-72 hours if no improvement or any worsening of symptoms If you notice blood in your stool make sure to follow up with your Family Doctor or go to the closest Emergency Room You was given a list of accepting Physicians please choose one and make appointment Clinical Impressions Clinical Impression: Nausea vomiting and diarrhea Stand Alone Forms Stand Alone Forms: Work/School Release Instructions Patient Instructions: Diarrhea, DI for Nausea -- Adult Print Language Print Language: British Discharge ED Provider[place] Yeny [facility] General Stated complaint: stomach pain Mode of Arrival: Ambulatory Source of Information: Patient Limitations: No Limitations Time Seen by Provider: 04/27/24 09:44 Description of Symptoms (Recalled from Triage Doc. by RN): Patient reports stomach ache, vomiting and blood when he wipes since 04/21. HEENT Symptoms (Recalled from RN notes): No Resp Symptoms (Recalled from RN notes): No Skin Symptoms (Recalled from RN notes): No MS Symptoms (Recalled from RN notes): No Functional Status (Recalled from RN notes): wnl History of Present Illness Provider Complaint: Patient states that he has been having diarrhea on and off since 04/21 States has been worse the last couple of days it has got worse States earlier he was at work and noticed a little blood on the tissue but none in the toilet States he thinks it was because the toilet paper is rough, States also has had some vomiting States he was around his niece and sister that tested positive for COVID Related Data Previous Rx's ?Medication ?Instructions ?Recorded amoxicillin 875 mg-potassium 1 tab PO Q12H #20 tabs 04/02/23 clavulanate 125 mg tablet prdrqfdvlcaznfh-valtozbppxabqde-YI 5 ml PO Q6H PRN Cough #240 mL 04/02/23 2 mg-30 mg-10 mg/5 mL oral syrup (Bromfed DM) methylprednisolone 4 mg tablets in 4 mg PO DIRECTED #21 tabs 04/02/23 a dose pack ondansetron 4 mg disintegrating 4 mg PO Q8H PRN Nausea #12 tabs 04/02/23 tablet azithromycin 250 mg tablet See Rx Instructions PO .COMPLEX 5 01/31/24 (Zithromax Z-Maninder) days #6 tabs methylprednisolone 4 mg tablets in See Rx Instructions .Route 01/31/24 a dose pack (Medrol (Maninder)) .COMPLEX 6 days #21 tabs ondansetron 4 mg disintegrating 4 mg PO Q8H PRN nausea and 01/31/24 tablet vomiting #10 tabs dicyclomine 10 mg capsule 10 mg PO TID PRN abdominal 04/27/24 pain/cramping #12 caps ondansetron 4 mg disintegrating 4 mg PO Q8H PRN nausea and 04/27/24 tablet vomiting #15 tabs Allergies Allergy/AdvReac Type Severity Reaction Status Date / Time No Known Allergies Allergy Verified 04/02/23 18:19 Worker's Comp Is this a Worker's Comp case?: No [facility] Disclaimer: The information contained in this section may have been updated after the patient was seen, as this information can be updated by other users. Social History Smoking Status: Current every day smoker tobacco type: cigarettes packs per day: 1 second hand exposure: No alcohol intake: never substance use type: marijuana current occupational status: other Travel in the last 8 weeks: None household members: family housing: house ROS Obtained: Yes All systems reviewed & no additional complaints except as documented and Yes Systems reviewed as appropriate & no additional complaints except as documented Constitutional Constitutional: Reports system reviewed and no additional complaints, except as documented and Reports as per HPI Eyes Eyes: Reports system reviewed and no additional complaints, except as documented and Reports as per HPI ENT Ears, Nose, Mouth, and Throat: Reports system reviewed and no additional complaints, except as documented and Reports as per HPI Cardiovascular Cardiovascular: Reports system reviewed and no additional complaints, except as documented and Reports as per HPI Respiratory Respiratory: Reports system reviewed and no additional complaints, except as documented and Reports as per HPI Gastrointestinal Gastrointestingal: Reports system reviewed and no additional complaints, except as documented, as per HPI, cramping, diarrhea, nausea, vomiting and other (reports small amount of bright blood on tissue after wiping none since); Denies hematemesis, hematochezia or melena Physical Exam General General appearance: alert and in no apparent distress ENT ENT exam: Present mucous membranes moist Chest Chest inspection: Present normal inspection and symmetric chest wall rise Respiratory Respiratory exam: Present normal lung sounds bilaterally; Absent respiratory distress or wheezes Cardiovascular Cardiovascular exam: Present regular rate, normal rhythm and normal heart sounds Abdominal Exam Abdominal exam: Present soft and normal bowel sounds; Absent distention, tenderness, guarding, rebound or rigidity Rectal Exam Rectal exam: Present other (irritation noted, no open wounds no external hemorrhoids noted patient declined examination for internal hemorrhoids no dried blood no active bleeding) Neurological Exam Neurological exam: Present alert, oriented X3 and normal gait Medical Decision Making Medical Records Screening: Per USPSTF and CDC recommendations, given the prevalence of disease in our region, it is our hospital?s policy to screen for HIV and viral Hepatitis for all patients aged 18 and over and those with ongoing risk factors. Dexter Inquiry Pt receiving controlled substance: No Dexter was queried for this patient: No Vital Signs: 04/27/24 09:36 Temperature 98.8 F Temperature Source Oral Pulse Rate [Radial] 82 Respiratory Rate 16 Blood Pressure [Right Arm] 142/89 H Blood Pressure Mean [Right Arm] 106 Blood Pressure Source [Right Arm] Automatic Cuff Blood Pressure Position [Right Arm] Sitting 02 Sat by Pulse Oximetry 99 Oxygen Delivery Method Room Air Medical Decision Narrative: Discussed with patient about having blood on tissue after wiping Patient states that he didnt noticed any blood in the toilet or in his stools Discussed with patient about transfer to the ED and he declined States his boss made him come in to get checked and he wanted a work note, Discussed with patient and informed him if he had diarrhea while in the [facility] to collect specimen, Patient reports doesnt have PCP will give him a list of accepting for him to follow up again discussed with patient about transfer to the ED and he declined states he only noticed blood one time on the tissue
[2024-04-27 10:15] VITALS: BP 142/89; PULSE 82; RESP 16; TEMP 37.1; O2SAT 99
== END 2024-04-27 10:16 | disposition home or self-care (01) ==
PROVIDERS: Emergency Provider Nurse Practitioner
DX: R11.2 Nausea with vomiting, unspecified (principal); R19.7 Diarrhea, unspecified; R10.9 Unspecified abdominal pain; R19.5 Other fecal abnormalities
CPT/HCPCS: 99212; G0381

== ENCOUNTER 2024-10-18 18:22 | Emergency (ER) | payer OTHER, SELFPAY ==
--- NOTE | 2024-10-18 19:03 | CT_ITS ---
PROCEDURE INFORMATION: Exam: CT Head Without Contrast Exam date and time: 10/18/2024 7:23 PM Age: 34 years old Clinical indication: Other: Blurred vision; Additional info: Blurred vision, off balance TECHNIQUE: Imaging protocol: Computed tomography of the head without contrast. Radiation optimization: All CT scans at this facility use at least one of these dose optimization techniques: automated exposure control; mA and/or kV adjustment per patient size (includes targeted exams where dose is matched to clinical indication); or iterative reconstruction. COMPARISON: No relevant prior studies available. FINDINGS: Brain: No hemorrhage. Unremarkable white matter. No mass effect. Cerebral ventricles: No ventriculomegaly. Paranasal sinuses: Visualized sinuses are unremarkable. No fluid levels. Mastoid air cells: Visualized mastoid air cells are well aerated. Bones: Unremarkable. No acute fracture. Soft tissues: Unremarkable. IMPRESSION: No acute intracranial abnormality.
--- NOTE | 2024-10-18 19:05 | PC.NURSE ---
finger stick glucose 100 at 1900
--- NOTE | 2024-10-18 19:10 | PC.NURSE ---
oral temp 99.3
[2024-10-18 19:16] LABS: Basophils # 0.1 K/mm3 (0-0.2); Basophils % 0.7 % (0.1-2.0); Eosinophils # 0.1 Kmm3 (0.0-0.4); Hematocrit 41.8 % (42.0-52.0); Hemoglobin 14.7 g/dL (14.1-18.0); Lymphocytes # 3.6 K/mm3 (0.7-4.5); Lymphocytes % 40.8 % (10-50); Mean Corpuscular HGB Conc 35.2 g/dL (31.8-35.4); Mean Corpuscular Hemoglobin 29.9 pg (27.0-31.2); Mean Corpuscular Volume 85.1 fl (80-94); Mean Platelet Volume 10.9 fl (7.4-10.4); Monocytes # 0.4 K/mm3 (0.1-1.0); Monocytes % 4.4 % (1.7-9.3); Neutrophils # 4.6 K/mm3 (1.8-7.8); Neutrophils % 52.9 % (37.0-80.0); Nucleated Red Blood Cells # 0 10^3/uL; Nucleated Red Blood Cells % 0 %; Platelet Count 304 K/mm3 (142-424); Red Blood Count 4.91 M/mm3 (4.60-6.20); Red Cell Distribution Width 11.9 % (11.5-17.5); Red Cell Distribution Width-SD 36.9 fL; White Blood Count 8.8 K/mm3 (4.8-10.8)
[2024-10-18 19:23] VITALS: BP 140/93; PULSE 55; RESP 16; TEMP 37.4; O2SAT 97; BMI 32.8
--- NOTE | 2024-10-18 19:24 | ECG_ITS ---
APPROVED REPORT Exam: Resting ECG HR:55 bpm ECG Measurements Heart Rate 55 AXES NH 187 P 68 QRSd 90 QRS 78 QT 380 T 53 QTc 368 Conclusion SINUS BRADYCARDIA WITH SINUS ARRHYTHMIA BORDERLINE ECG UNCONFIRMED REPORT Electronically signed by : Brando Thurston, 10/20/2024 15:15:48
[2024-10-18 19:25] LABS: Albumin Level 4.6 g/dl (3.5-5.0); Chloride 108 mmol/L (98-107); Potassium 3.2 mmoL/L (3.5-5.1); Sodium 142 mmol/L (136-145)
[2024-10-18 19:27] LABS: Blood Urea Nitrogen 6 mg/dl (9-20); Creatinine Clearance Estimated 176 mL/min (50-200); Estimated Glomerular Filt Rate 97 ml/min (>60); GFR (African American) 118 ML/MIN (>60)
[2024-10-18 19:28] LABS: Alanine Aminotransferase 29 U/L (12-78); Albumin/Globulin Ratio 1.8 (1.1-1.8); Alkaline Phosphatase 49 U/L (38-126); Anion Gap 8.2 mEq/L (5-15); Aspartate Amino Transferase 29 U/L (17-59); Bilirubin,Total 1.3 mg/dl (0.2-1.3); Calcium 8.8 mg/dl (8.4-10.2); Carbon Dioxide 29 mmol/L (22.0-30.0); Globulin 2.6 g/dL (1.3-3.2); Glucose 95 mg/dl (74-100); Magnesium 1.8 mg/dl (1.6-2.3); Total Protein,Serum 7.2 g/dl (6.3-8.2)
[2024-10-18 19:31] VITALS: BP 128/83; PULSE 56; O2SAT 98
[2024-10-18 19:43] LABS: Troponin I < 0.01 ng/ml (0.00-0.034)
[2024-10-18 19:59] LABS: Thyroid Stimulating Hormone 1.67 uIU/mL (0.465-4.68)
[2024-10-18 20:01] VITALS: BP 129/83; PULSE 52; O2SAT 98
[2024-10-18 20:35] LABS: HIV Combo NEGATIVE (Negative)
[2024-10-18 20:43] LABS: Hepatitis C Ab Qual. W/ RFX NEGATIVE (Negative)
[2024-10-18] MEDS: POTASSIUM CHLORIDE 20MEQ TAB 40 MEQ PO (21:11)
[2024-10-18 21:16] VITALS: BP 131/86; PULSE 63; RESP 16; TEMP 36.6; O2SAT 99
--- NOTE | 2024-10-18 22:37 | ED_ITS ---
<Statement entered by Donna Thurston MD - 10/18/24 23:25> I was consulted by the WHITNEY, and we discussed the complexity of the problems being addressed. I approved the treatment and management plan for this patient's care in the emergency department, thus performing a substantive portion of the medical decision making. Donna Thurston MD, CHET, FACEP Discharge Plan Disposition Patient Disposition: Home, Self-Care Condition: Good Prescriptions Prescriptions: No Action azithromycin [Zithromax Z-Maninder] 250 mg tablet See Rx Instructions .ROUTE .COMPLEX 5 Days Qty: 6 0RF Rx Instructions: For 250 mg dose pack: take 500 mg today (day 1), then 250 mg for 4 days (days 2-5) methylprednisolone [Medrol (Maninder)] 4 mg tablets,dose pack See Rx Instructions .Route .COMPLEX 6 Days Qty: 21 0RF Rx Instructions: taper pack; ondansetron 4 mg tablet,disintegrating 4 mg PO Q8H PRN (Reason: nausea and vomiting) Qty: 10 0RF dicyclomine 10 mg capsule 10 mg PO TID PRN (Reason: abdominal pain/cramping) Qty: 12 0RF ondansetron 4 mg tablet,disintegrating 4 mg PO Q8H PRN (Reason: nausea and vomiting) Qty: 15 0RF egrubysfhiqmnft-eanqltmwb-BZ [Bromfed DM] 2-30-10 mg/5 mL Syrup 5 ml PO Q6H PRN (Reason: Cough) Qty: 240 0RF amoxicillin-pot clavulanate 875-125 mg Tablet 1 tab PO Q12H Qty: 20 0RF methylprednisolone 4 mg Tablets,Dose Pack 4 mg PO DIRECTED Qty: 21 0RF ondansetron 4 mg Tablet,Disintegrating 4 mg PO Q8H PRN (Reason: Nausea) Qty: 12 0RF Referrals Follow up/Referrals: Provider,Referral, MD [Primary Care Provider] - See instructions Activity Restrictions/Add. Instructions Additional Instructions/Restrictions: You were seen in the ER for dizziness and blurry vision. Please follow-up with your PCP this week for reevaluation. Return to the ER if symptoms return. Clinical Impressions Clinical Impression: Dizziness, Blurred vision, Hypokalemia Instructions Patient Instructions: Dizziness, Nonvertigo Print Language Print Language: Frisian Discharge ED Provider: Donna Thurston General Adult HPI General Chief complaint: Dizziness Stated complaint: off balance, blurry vision, sees floaters Time Seen by Provider: 10/18/24 19:03 Mode of Arrival: Ambulatory Source of Information: Patient Description of Symptoms (Recalled from ER Triage Doc. by RN): Patient woke up and felt dizzy, weak and had blurry vision. States it started around noon. No known medical problems. History of Present Illness HPI narrative: Patient presents with feeling dizzy and having blurred vision since around noon today. He reports that he feels off balance when walking. He reports his speech seems slurred as well. Denies any focal weakness. MD complaint: Dizziness Onset (ago): hour(s) (7) Consistency: constant Relieving factors: none Exacerbating factors: none Associated symptoms: negative fever/chills or nausea/vomiting Related Data Previous Rx's ?Medication ?Instructions ?Recorded amoxicillin 875 mg-potassium 1 tab PO Q12H #20 tabs 04/02/23 clavulanate 125 mg tablet lpihyqnbtbfokqm-ktmqkhhukdtkwbu-XM 5 ml PO Q6H PRN Cough #240 mL 04/02/23 2 mg-30 mg-10 mg/5 mL oral syrup (Bromfed DM) methylprednisolone 4 mg tablets in 4 mg PO DIRECTED #21 tabs 04/02/23 a dose pack ondansetron 4 mg disintegrating 4 mg PO Q8H PRN Nausea #12 tabs 04/02/23 tablet azithromycin 250 mg tablet See Rx Instructions PO .COMPLEX 5 01/31/24 (Zithromax Z-Maninder) days #6 tabs methylprednisolone 4 mg tablets in See Rx Instructions .Route 01/31/24 a dose pack (Medrol (Maninder)) .COMPLEX 6 days #21 tabs ondansetron 4 mg disintegrating 4 mg PO Q8H PRN nausea and 01/31/24 tablet vomiting #10 tabs dicyclomine 10 mg capsule 10 mg PO TID PRN abdominal 04/27/24 pain/cramping #12 caps ondansetron 4 mg disintegrating 4 mg PO Q8H PRN nausea and 04/27/24 tablet vomiting #15 tabs Allergies Allergy/AdvReac Type Severity Reaction Status Date / Time No Known Allergies Allergy Verified 04/02/23 18:19 [facility] Disclaimer: The information contained in this section may have been updated after the patient was seen, as this information can be updated by other users. Social History Smoking Status: Current every day smoker tobacco type: cigarettes packs per day: 1 second hand exposure: No alcohol intake: never substance use type: marijuana current occupational status: other Travel in the last 8 weeks?: None household members: family housing: house Have you lived/traveled outside [place] in past 30 days?: No Contact w/someone who lives/traveled outside US past 30 days?: No Exposure to someone with infectious disease in past 14 days?: No Do you have a fever (greater than 100.4 F or 38 C)?: No Have you tested positive for COVID-19?: No Exposed to someone with COVID-19 in past 14 days?: No Do you have a sore throat?: No Do you have a cough?: No Do you have any weakness?: Yes Do you have any diarrhea?: No Are you experiencing any unusual bleeding?: No Do you have any muscle aches/pain?: Yes Do you have any abdominal pain?: No Are you experiencing loss of taste or smell?: No ROS Obtained: Yes Systems reviewed as appropriate & no additional complaints except as documented Physical Exam General General appearance: alert and in no apparent distress Head Head exam: atraumatic and normocephalic Eye Eye exam: Present normal appearance and EOMI Chest Chest inspection: Present symmetric chest wall rise Respiratory Respiratory exam: Present normal lung sounds bilaterally; Absent wheezes or stridor Cardiovascular Cardiovascular exam: Present regular rate and normal rhythm; Absent systolic murmur Extremities Exam Extremities exam: Present full ROM Neurological Exam Neurological exam: Present alert, oriented X3, CN II-XII intact, normal gait, motor sensory deficit and other (Normal gait, xqulal-ku-novj and gpcg-ia-ktkx) Psychiatric Psychiatric exam: Present normal affect and normal mood Skin Skin exam: Present warm, dry and intact Medical Decision Making Medical Records Screening: Per USPSTF and CDC recommendations, given the prevalence of disease in our region, it is our hospital?s policy to screen for HIV and viral Hepatitis for all patients aged 18 and over and those with ongoing risk factors. [place] Inquiry Pt receiving controlled substance: No Vital Signs: 10/18/24 19:23 10/18/24 19:31 10/18/24 20:01 Temperature 99.3 F Temperature Source Oral Pulse Rate 56 L 52 L Pulse Rate [Right Radial] 55 L Respiratory Rate 16 Blood Pressure 128/83 129/83 Blood Pressure [Right Arm] 140/93 H Blood Pressure Mean [Right Arm] 108 Blood Pressure Source Blood Pressure Source [Right Arm] Automatic Cuff Blood Pressure Position Blood Pressure Position [Right Arm] Supine 02 Sat by Pulse Oximetry 97 98 98 Oxygen Delivery Method Room Air 10/18/24 21:16 Temperature 97.9 F Temperature Source Oral Pulse Rate 63 Pulse Rate [Right Radial] Respiratory Rate 16 Blood Pressure 131/86 Blood Pressure [Right Arm] Blood Pressure Mean [Right Arm] Blood Pressure Source Automatic Cuff Blood Pressure Source [Right Arm] Blood Pressure Position Supine Blood Pressure Position [Right Arm] 02 Sat by Pulse Oximetry Oxygen Delivery Method Room Air Lab Data Lab Results 10/18/24 19:10: WBC 8.8, RBC 4.91, Hgb 14.7, Hct 41.8 L, MCV 85.1, MCH 29.9, MCHC 35.2, RDW 11.9, Plt Count 304, MPV 10.9 H, Neut % (Auto) 52.9, Lymph % (Auto) 40.8, [place] % (Auto) 4.4, Eos % (Auto) 1.0, Baso % (Auto) 0.7, Neut # (Auto) 4.6, Lymph # (Auto) 3.6, [place] # (Auto) 0.4, Eos # (Auto) 0.1, Baso # (Auto) 0.1, Sodium 142, Potassium 3.2 L, Chloride 108 H, Carbon Dioxide 29, Anion Gap 8.2, BUN 6 L, Creatinine 0.90, Estimated Creat Clear 176, Estimated GFR 97, Est GFR ( Amer) 118, Glucose 95, Calcium 8.8, Magnesium 1.8, Total Bilirubin 1.3, AST 29, ALT 29, Alkaline Phosphatase 49, Troponin I < 0.01, Total Protein 7.2, Albumin 4.6, Globulin 2.6, Albumin/Globulin Ratio 1.8, TSH 1.67, HCV Ab JACOB w/Rflx PCR Qn Negative, HIV Ag/Ab Combo Qual Negative 10/18/24 19:10 10/18/24 19:10 Orders (Tests/Meds): ED MEDICATIONS Discontinued Medications Generic Name Dose Route Start Last Admin Trade Name Abdon PRN Reason Stop Dose Admin Potassium Chloride 40 meq 10/18/24 21:04 10/18/24 21:11 Potassium Chloride 20meq Tab PO 10/18/24 21:05 40 meq ONCE ONE Administration Sodium Chloride 10 ml 10/18/24 19:03 Sodium Chloride 0.9% 10ml Flush Syringe IV 11/17/24 19:02 NEEDED PRN Maintain IV Site ORDERS Category Date Time Status CT head/brain wo con Stat Cat Scan 10/18/24 19:03 Completed CBC w/Auto Diff [Complete Blood Count Auto Diff] Stat Lab 10/18/24 19:10 Completed CMP [Comprehensive Metabolic Panel] Stat Lab 10/18/24 19:10 Completed HIV Combo Stat Lab 10/18/24 19:10 Completed Hepatitis C Ab Qual. W/ RFX Stat Lab 10/18/24 19:10 Completed Magnesium Stat Lab 10/18/24 19:10 Completed TSH [Thyroid Stimulating Hormone] Stat Lab 10/18/24 19:10 Completed Troponin I Stat Lab 10/18/24 19:10 Completed Medical Decision Narrative: In summary patient is a 34-year-old male who presents the emergency department for evaluation of blurred vision and dizziness. Patient is hemodynamically stable upon arrival, afebrile. Unremarkable physical exam. Differential diagnosis includes intracranial mass, intracranial hemorrhage, electrolyte abnormality, ACS. Initial workup will be conducted with EKG, CT brain, labs. Imaging remarkable for mild hypokalemia. Upon repeat evaluation patient had resolution of symptoms. He is able to ambulate without difficulty. No neurologic deficit. Given this patient is appropriate for discharge home at this time with strict return precautions. Advised to follow-up with PCP this week.. Critical Care Critical Care Time Critical Care Time: No
== END 2024-10-18 21:17 | disposition home or self-care (01) ==
PROVIDERS: Physician Assistant; Emergency Provider Student in an Organized Health Care Education/Training Program
DX: E87.6 Hypokalemia (principal); R42 Dizziness and giddiness; R00.1 Bradycardia, unspecified; H53.8 Other visual disturbances; Z11.59 Encounter for screening for other viral diseases; Z11.4 Encounter for screening for human immunodeficiency virus [HIV]
CPT/HCPCS: 70450; 80053; 83735; 84443; 84484; 85025; 86803; 87389; 93005; 99285

== ENCOUNTER 2025-03-22 17:12 | Emergency (ER) | payer OTHER, SELFPAY ==
[2025-03-22 17:16] VITALS: BP 128/87; PULSE 67; RESP 16; TEMP 36.7; O2SAT 100; BMI 29.8
[2025-03-22 17:23] VITALS: BP 124/74; PULSE 50; RESP 18; O2SAT 100
--- OUTSIDE RECORDS SUMMARY | 2025-03-22 17:44 | XMS_ITS | Clinical Summary ---
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 Phone Unavailable Primary Care Provider Unavailabl e Allergies No known active allergies Medications No known medications Social History Tobacco Use Types Packs/Day Years Used Date Smoking Tobacco: Never Smokeless Tobacco: Never Tobacco Cessation:Counseling Given: Not Answered Alcohol Use Standard Drinks/Week Comments Not Currently 0 (1 standard drink = 0.6 oz pur e alcohol) Food Insecurity Answer Date Recorded Food run out past 12 months Not on file 06/18 Food did not last past 12 months Not on file 07/06/2023 Employment Answer Date Recorded Help finding and keeping a job Not on file 0 07/06/2023 Family and Community Support Answer Daniel e Recorded Help with Day to Day Activities Not on file 07/06/2023 Feeling Lonely or Isolated Not on file 07/06 Educational Attainment Answer Date Pillo rded Speak language other than Bulgarian at home Not on file 07/06/2023 Want help with school or training Not on file 07/06/2023 Substance Use Answer Date Recorded Used prescription meds for non-medical reasons N ot on file 07/06/2023 Used illegal drugs past 12 months Not on file 07/06/2023 Sex and Gender Information Value Date Recorded Sex Assigned at Not on file Legal Sex Male 1:51 AM CDT Gender Identity Not on file Sexual Orientation Not on file Last Filed Vital Signs Vital Sign Reading Time Taken Comments Blood Pressure 131/63 11/18/2022 3:55 AM EDT Pulse 71 11/18/2022 4:00 AM EDT Temperature 36.2 C (97.2 F) 11/18/2022 3:55 AM EDT Respiratory Rate 18 11/18/2022 2:59 AM EDT Oxygen Saturation 95% 11/18/2022 4:00 AM EDT Inhaled Oxygen Concentration - - Weight 108.9 kg (240 lb) 11/18/2022 2:59 AM EDT Height 182.9 cm (6') 11/18/2022 2:59 AM EDT Body Mass Index 32.55 11/18/2022 2:59 AM EDT Plan of Treatment Health Maintenance Due Date Last Done Comments Depression Screening (12+) 2003 HIV Screening 2006 Hepatitis C Screening 2009 DTAP/TDAP/TD VACCINES (1 - Tdap) 2010 Lipid Panel 2011 Tobacco Cessation Counseling and Screening (12+) 11/19/2023 11/18/2022 COVID-19 VACCINE (1 - 2023-2 5 season) 2025 Influenza Vaccine (#1) 2025 Pneumococcal Vaccine: 0-49 Years Aged Out No longer eligible based on patient's age to complete this [place] [address] [phone] [employer] [facility]
--- OUTSIDE RECORDS SUMMARY | 2025-03-22 17:44 | XMS_ITS | Referral Summary ---
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
--- NOTE | 2025-03-22 17:55 | ED_ITS ---
<Statement entered by Ruiz Hutton MD - 03/23/25 01:15> I was consulted by the WHITNEY, and we discussed the complexity of the problems being addressed. I approve the treatment and management plan for this patient's care in the emergency department, thus performing a substantive portion of the medical decision making. Ruiz Hutton MD Discharge Plan Disposition Patient Disposition: Home, Self-Care Condition: Good Prescriptions Prescriptions: New methocarbamol 750 mg tablet 750 mg PO HS Qty: 30 0RF No Action azithromycin [Zithromax Z-Maninder] 250 mg tablet See Rx Instructions .ROUTE .COMPLEX 5 Days Qty: 6 0RF Rx Instructions: For 250 mg dose pack: take 500 mg today (day 1), then 250 mg for 4 days (days 2-5) methylprednisolone [Medrol (Maninder)] 4 mg tablets,dose pack See Rx Instructions .Route .COMPLEX 6 Days Qty: 21 0RF Rx Instructions: taper pack; ondansetron 4 mg tablet,disintegrating 4 mg PO Q8H PRN (Reason: nausea and vomiting) Qty: 10 0RF dicyclomine 10 mg capsule 10 mg PO TID PRN (Reason: abdominal pain/cramping) Qty: 12 0RF ondansetron 4 mg tablet,disintegrating 4 mg PO Q8H PRN (Reason: nausea and vomiting) Qty: 15 0RF fmoylgvxgbtpuig-axslsjcvb-AM [Bromfed DM] 2-30-10 mg/5 mL Syrup 5 ml PO Q6H PRN (Reason: Cough) Qty: 240 0RF amoxicillin-pot clavulanate 875-125 mg Tablet 1 tab PO Q12H Qty: 20 0RF methylprednisolone 4 mg Tablets,Dose Pack 4 mg PO DIRECTED Qty: 21 0RF ondansetron 4 mg Tablet,Disintegrating 4 mg PO Q8H PRN (Reason: Nausea) Qty: 12 0RF Referrals Follow up/Referrals: Provider,Referral, [Primary Care Provider, Medical] - See instructions Activity Restrictions/Add. Instructions Additional Instructions/Restrictions: Please return to the emergency department with any worsening signs or symptoms. Please take your muscle relaxer as prescribed, please be on the look out for a call from our peers customer support coordinator. Please follow-up with your PCP in the upcoming days/weeks. I recommend utilizing ibuprofen Tylenol and ice as needed for symptomatic relief. Clinical Impressions Clinical Impression: Acute lumbar myofascial strain Stand Alone Forms Stand Alone Forms: Work/School Release Instructions Patient Instructions: DI for Back Strain or Sprain Print Language Print Language: Syriac Discharge ED Provider: Ruiz Hutton Adult HPI General Chief complaint: PAIN Stated complaint: Sharp pain in lw back and ribs Time Seen by Provider: 03/22/25 17:43 Mode of Arrival: Ambulatory Source of Information: Patient Limitations: No Limitations Description of Symptoms (Recalled from ER Triage Doc. by RN): patient presents to the Ed for right flank pain that wraps around his side into his ribs. patient stated this began 2 days ago. patient currently rating it a 2/10 just sititng there butb when he takes a deep breath its 10/10 and stabbing. History of Present Illness HPI narrative: 35-year-old male presents to the emergency department with some right sided flank pain/lower back pain that started 2 days ago, patient denies any fever chills chest pain shortness of breath, denies any trauma or injury per history, but does state 3 days ago he went on a drinking binge , because he is recently going through a divorce . And has been drinking more than normal . When he woke up on the floor and cannot remember what happened. Patient denies any overt abdominal pain, denies any nausea or vomiting, denies any constipation diarrhea melena hematochezia hematemesis or hemoptysis, no urinary type symptomatology, patient is a current everyday smoker (vapes), admits to occasional alcohol use, more within the last month, several days a week, patient admits to current everyday marijuana use. Patient has no other real relevant past medical history takes no medications daily at home. Initial triage vitals are unremarkable. Patient denies any saddle anesthesia, denies any urinary bladder or bowel dysfunction, denies any radicular symptomatology, denies any referral numbness or tingling, no upper or lower extremity weakness, patient denies any SI or HI. Please note that above description of symptoms, in this electronic medical record under categorization of recalled from ER triage doctor by RN are reflective of an initial nursing assessment, however, is not reflective of my full history and physical exam that was personally taken and clarified. Consequentially, this preceding description of symptoms, which may include the patient's categorized chief complaint in the EMR, do not reflect my personal clinical impression, and the ultimate description of history of present illness and patient stated complaints should be deferred to this section of the note. Unless stated otherwise or congruent with this section of the note, additional signs, symptoms, or incongruence should be interpreted as inaccurate with my clinical impression. Onset (ago): day(s) Related Data Previous Rx's ?Medication ?Instructions ?Recorded amoxicillin 875 mg-potassium 1 tab PO Q12H #20 tabs clavulanate 125 mg tablet nmrgsuwsvbfyzlb-vwptbkjrlpizegl-QC 5 ml PO Q6H PRN Cou gh #240 mL 04/02/23 2 mg-30 mg-10 mg/5 mL oral syrup (Bromfed DM) methylprednisolone 4 mg tablets in 4 mg PO DIRECTED #21 tabs 04/02/23 a dose pack ondansetron 4 mg disintegrating 4 mg PO Q8H PRN Nausea #12 tabs 04/02/23 tablet azithromycin 250 mg tablet See Rx Instructions PO .COM PLEX 5 01/31/24 (Zithromax Z-Maninder) days #6 tabs methylprednisolone 4 mg tablets in See Rx Instructions .Route 01/31/24 a dose pack (Medrol (Maninder)) .COMPLEX 6 days #21 tabs ondansetron 4 mg disintegrating 4 mg PO Q8H PRN nausea and 01/31/24 tablet vomiting #10 tabs dicyclomine 10 mg capsule 10 mg PO TID PRN abdominal 1 06/27/23 pain/cramping #12 caps ondansetron 4 mg disintegrating 4 mg PO Q8H PRN nausea and 04/27/24 tablet vomiting #15 tabs methocarbamol 750 mg tablet 750 mg PO HS #30 tabs 10/0 12/09 Allergies Allergy/AdvReac Type Severity Reaction Status Date / Time No Known Allergies Allergy Verified 04/02/23 18:19 [facility] Disclaimer: The information contained in this section may have been updated after the patient was seen, as this information can be updated by other users. Social History Smoking Status: Light tobacco smoker tobacco type: cigarettes packs per day: 1 second hand exposure: No alcohol intake: never substance use type: marijuana current occupational status: other Travel in the last 8 weeks?: None household members: family housing: house Have you lived/traveled outside [place] in past 30 days?: No Contact w/someone who lives/traveled outside [place] past 30 days?: No Exposure to someone with infectious disease in past 14 days?: No Do you have a fever (greater than 100.4 F or 38 C)?: No Have you tested positive for COVID-19?: No Exposed to someone with COVID-19 in past 14 days?: No Do you have a sore throat?: No Do you have a cough?: No Do you have any weakness?: No Do you have any diarrhea?: No Are you experiencing any unusual bleeding?: No Do you have any muscle aches/pain?: No Do you have any abdominal pain?: No Are you experiencing loss of taste or smell?: No ROS Obtained: Yes All systems reviewed & no additional complaints except as documented Physical Exam General General appearance: alert and in no apparent distress Head Head exam: atraumatic and normocephalic Eye Eye exam: Present PERRL and EOMI ENT ENT exam: Present mucous membranes moist Neck Neck exam: Present normal inspection Chest Chest inspection: Present normal inspection and symmetric chest wall rise Respiratory Respiratory exam: Present normal lung sounds bilaterally; Absent respiratory distress Cardiovascular Cardiovascular exam: Present regular rate and normal rhythm Abdominal Exam Abdominal exam: Present soft; Absent tenderness, guarding or rebound Extremities Exam Extremities exam: Present normal inspection Back Exam Back exam: Present CVA tenderness (R) and paraspinal tenderness; Absent CVA tenderness (L), muscle spasm or vertebral tenderness Neurological Exam Neurological exam: Present alert and oriented X3 Psychiatric Psychiatric exam: Present normal affect Skin Skin exam: Present warm and dry Medical Decision Making Medical Records Medical records reviewed: Yes I reviewed the patient's medical records. Screening: Per USPSTF and CDC recommendations, given the prevalence of disease in our region, it is our hospital?s policy to screen for HIV and viral Hepatitis for all patients aged 18 and over and those with ongoing risk factors. Dexter Inquiry Pt receiving controlled substance: No Dexter was queried for this patient: No Vital Signs: 03/22/25 17:16 03/22/25 17:23 Temperature 98.0 F Temperature Source Oral Pulse Rate 50 L Pulse Rate [Right Radial] 67 Respiratory Rate 16 18 Blood Pressure 124/74 Blood Pressure [Right Arm] 128/87 Blood Pressure Mean [Right Arm] 100 Blood Pressure Source Automatic Cuff Blood Pressure Source [Right Arm] Automatic Cuff Blood Pressure Position Sitting Blood Pressure Position [Right Arm] Sitting 02 Sat by Pulse Oximetry 100 100 Oxygen Delivery Method Room Air Room Air Lab Data Lab results reviewed: Yes I reviewed the patient's lab results. Lab Results 03/22/25 18:35: WBC 10.7, RBC 5.04, Hgb 15.1, Hct 44.6, MCV 88.5, MCH 30.0, MCHC 33.9, RDW 12.1, Plt Count 307, MPV 10.6 H, Neut % (Auto) 72.7, Lymph % (Auto) 21.3, [place] % (Auto) 4.6, Eos % (Auto) 0.7, Baso % (Auto) 0.4, Neut # (Auto) 7.8, Lymph # (Auto) 2.3, [place] # (Auto) 0.5, Eos # (Auto) 0.1, Baso # (Auto) 0.0, Sodium 140, Potassium 3.8, Chloride 100, Carbon Dioxide 31 H, Anion Gap 12.8, B UN 8 L, Creatinine 0.80, Estimated Creat Clear 184, Estimated GFR 111, Est GFR ( Amer) 134, Glucose 110 H, Lactate 1.3, Calcium 9.1, Total Bilirubin 1.8 H, AST 26, ALT 26, Alkaline Phosphatase 69, Total Protein 7.3, Albumin 4.2, Globulin 3.1, Albumin/Globulin Ratio 1.4, Lipase 43, Urine Color Yellow, Urine Appearance Clear, Urine pH 6.0, Ur Specific [place] 1.010, Urine Protein Negative, Urine Glucose (UA) Negative, Urine Ketones Negative, Urine Blood Negative, Urine Nitrate Negative, Urine Bilirubin Negative, Urine Urobilinogen 0.2, Ur Leukocyte Esterase Negative, Urine RBC None, Urine WBC None, Ur Squamous Epith Cells None, Urine Bacteria None, Plasma/Serum Alcohol < 10 03/22/25 18:35 03/22/25 18:35 Orders (Tests/Meds): ED MEDICATIONS Discontinued Medications Generic Name Dose Route Start Last Admin Trade Name Freq PRN Reason Stop Dose Admin Iopamidol 75 ml 03/22/25 19:17 03/22/25 19:18 Iopamidol-370 (76%);100ml Bottle IV 03/22/25 19:18 75 ml ONCE ONE Administration Ketorolac Tromethamine 15 mg 03/22/25 18:09 03/22/25 18:41 Ketorolac 15mg/Ml Vial IV 03/22/25 18:10 15 mg ONCE ONE Administration Sodium Chloride 10 ml 03/22/25 19:17 03/22/25 19:18 Sodium Chloride 0.9% 10ml Syr (Rad Only) IV 03/22/25 19:18 10 ml ONCE ONE Administration ORDERS Category Date Time Status CT abdomen pelvis w con Stat Cat Scan 03/22/25 18:08 Completed Consult Health Policy Manager [CONS] Routine Cons 03/22/25 18:09 Active XR chest portable Stat Exams 03/22/25 18:08 Completed Complete Blood Count Auto Diff Stat Lab 03/22/25 18:35 Completed Comprehensive Metabolic Panel Stat Lab 03/22/25 18:35 Completed Ethanol [Ethyl Alcohol] Stat Lab 03/22/25 18:35 Completed Lactic Acid Stat Lab 03/22/25 18:35 Completed Lipase Stat Lab 03/22/25 18:35 Completed Urinalysis and Microscopic Stat Lab 03/22/25 18:35 Completed Medical Decision Narrative: 35-year-old male presents to the emergency department with right-sided flank pain, differential diagnose include but not limited to nephrolithiasis, ureterolithiasis, acute UTI, pyelonephritis, pancreatitis, diverticulitis, appendicitis, colitis, ileitis, acute lumbar sacral strain, costochondritis among others. I discussed this patient's case with the attending physician Dr. Hutton Will obtain basic laboratory studies, CT head and pelvis with contrast, chest x- ray, ethyl alcohol level, lactic acid, lipase level, UA, will give 15 mg IV Toradol for pain consult. foot specialist for recent life stressor and alcohol use. CMP is notable for normal lactic acid level, elevated total bilirubin 1.8 Alcohol level within normal limits CBC unremarkable UA grossly unremarkable. I reviewed the patient's CT abdomen pelvis with contrast along the corresponding radiologic report, no acute findings. I reviewed the patient's chest x-ray along the corresponding radiologic report, no acute findings. I discussed the results with the patient at the bedside, patient has remained hemodynamically stable throughout time in the emergency department, discussed all results, laboratory studies nonactionable, CT abdomen pelvis and chest x-ray on actionable, thought to be more costochondritic versus acute lumbar sacral strain/thoracic myofascial sprain in nature, recommend ibuprofen Tylenol rest ice for symptomatic relief. Patient was given strict ED return precautions, will also prescribe the patient methocarbamol 750 milligram p.o., as needed for muscle spasms and musculoskeletal pain. 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 Patient voiced understanding and agreement with current treatment plan/discharge plan. Critical Care Critical Care Time Critical Care Time: No
--- NOTE | 2025-03-22 18:08 | CT_ITS ---
PROCEDURE INFORMATION: Exam: CT Abdomen And Pelvis With Contrast Exam date and time: 03/22/2025 7:18 PM Age: 35 years old Clinical indication: Abdominal pain; Additional info: Right-sided flank pain TECHNIQUE: Imaging protocol: Computed tomography of the abdomen and pelvis with contrast. Radiation optimization: All CT scans at this facility use at least one of these dose optimization techniques: automated exposure control; mA and/or kV adjustment per patient size (includes targeted exams where dose is matched to clinical indication); or iterative reconstruction. Contrast material: ISOVUE; Contrast volume: 75 ml; Contrast route: IV; COMPARISON: CR XR CHEST PORTABLE 11/09/2022 4:02 PM FINDINGS: Liver: Diffuse hypoattenuation of the liver compatible with moderate hepatic steatosis. Gallbladder and biliary ducts: Normal. No calcified stones. No ductal dilation. Pancreas: Normal. No ductal dilation. Spleen: Normal. No splenomegaly. Adrenal glands: Normal. No mass. Kidneys and ureters: Normal. No hydronephrosis. Stomach and bowel: Moderate stool burden throughout the colon. No obstruction. No mucosal thickening. Appendix: The appendix is normal in caliber without wall thickening. Intraperitoneal space: Unremarkable. No free air. No significant fluid collection. Vasculature: Unremarkable. No abdominal aortic aneurysm. Lymph nodes: Unremarkable. No enlarged lymph nodes. Urinary bladder: Unremarkable as visualized. Reproductive: Unremarkable as visualized. Bones/joints: Unremarkable. No acute fracture. Soft tissues: Normal. IMPRESSION: No acute findings.
--- NOTE | 2025-03-22 18:08 | XR_ITS ---
PROCEDURE INFORMATION: Exam: XR Chest Exam date and time: 03/22/2025 7:20 PM Age: 35 years old Clinical indication: Other: Right-sided chest wall pain TECHNIQUE: Imaging protocol: Radiologic exam of the chest. Views: 1 view. COMPARISON: CR XR CHEST PORTABLE 11/09/2022 4:02 PM FINDINGS: Lungs: Unremarkable. No consolidation. Pleural spaces: Unremarkable. No pleural effusion. No pneumothorax. Heart/Mediastinum: Left hilar calcified nodes unchanged from prior exam. No cardiomegaly. Bones/joints: Unremarkable. IMPRESSION: No acute findings.
[2025-03-22] MEDS: KETOROLAC 15MG/ML VIAL 15 MG IV (18:41)
[2025-03-22 18:45] LABS: Microscopic, Urine URINE MICROSCOPIC (MICROSCOPIC)
[2025-03-22 18:52] LABS: Hematocrit 44.6 % (42.0-52.0); Hemoglobin 15.1 g/dL (14.1-18.0); Immature Granulocytes % 0.3 %; Mean Corpuscular HGB Conc 33.9 g/dL (31.8-35.4); Mean Corpuscular Hemoglobin 30.0 pg (27.0-31.2); Mean Corpuscular Volume 88.5 fl (80-94); Nucleated Red Blood Cells % 0 %; Platelet Count 307 K/mm3 (142-424); Red Blood Count 5.04 M/mm3 (4.60-6.20); Red Cell Distribution Width-SD 39.2 fL; White Blood Count 10.7 K/mm3 (4.8-10.8)
[2025-03-22 19:00] LABS: Albumin Level 4.2 g/dl (3.5-5.0); Chloride 100 mmol/L (98-107); Potassium 3.8 mmoL/L (3.5-5.1); Sodium 140 mmol/L (136-145)
[2025-03-22 19:02] LABS: Blood Urea Nitrogen 8 mg/dl (9-20); Creatinine Clearance Estimated 184 mL/min (50-200); Creatinine,Serum 0.80 mg/dl (0.66-1.25); Estimated Glomerular Filt Rate 111 ml/min (>60); GFR (African American) 134 ML/MIN (>60)
[2025-03-22 19:03] LABS: Alanine Aminotransferase 26 U/L (12-78); Albumin/Globulin Ratio 1.4 (1.1-1.8); Alkaline Phosphatase 69 U/L (38-126); Anion Gap 12.8 mEq/L (5-15); Aspartate Amino Transferase 26 U/L (17-59); Bilirubin,Total 1.8 mg/dl (0.2-1.3); Calcium 9.1 mg/dl (8.4-10.2); Carbon Dioxide 31 mmol/L (22.0-30.0); Globulin 3.1 g/dL (1.3-3.2); Glucose 110 mg/dl (74-100); Lipase 43 U/L (23-300); Total Protein,Serum 7.3 g/dl (6.3-8.2)
[2025-03-22] MEDS: IOPAMIDOL-370 (76%);100ML BOTTLE 75 ML IV (19:18)
[2025-03-22] MEDS: SODIUM CHLORIDE 0.9% 10ML SYR (RAD ONLY) 10 ML IV (19:18)
[2025-03-22 19:38] LABS: Bilirubin,Urine Negative (Negative); Color,Urine YELLOW (Yellow); Glucose,Urine (UA) Negative (Negative); Ketones,Urine Negative (Negative); Leukocyte Esterase,Urine Negative (Negative); PH,Urine 6.0 (5.0-8.5); Protein,Urine Negative (Negative); Specific Gravity, Urine 1.010 (1.005-1.030); Urobilinogen,Urine 0.2 EU/dl (0.2)
[2025-03-22 21:01] VITALS: BP 124/75; PULSE 49; RESP 20; TEMP 36.7; O2SAT 99
--- NOTE | 2025-03-24 14:12 | PEERSUPPORT ---
Peer Support Note Patient Information Patient Information: DOS: 03/24/2025 Ps attempted to make contact. Number in chart doesnt appear to be a working number at this time.
== END 2025-03-22 21:03 | disposition home or self-care (01) ==
PROVIDERS: Physician Assistant; Emergency Provider Student in an Organized Health Care Education/Training Program
DX: S39.012A Strain of muscle, fascia and tendon of lower back, initial encounter (principal); X58.XXXA Exposure to other specified factors, initial encounter
CPT/HCPCS: 71045; 74177; 80053; 80320; 81001; 83605; 83690; 85025; 96374; 99283; 99284; J1885; Q9967